=== PATIENT | male | born 1985 | race Caucasian/White ===

== ENCOUNTER 2016-10-06 12:05 | Emergency (ER) | payer OTHER ==
[2016-10-06 13:59] LABS: BILIRUBIN NEGATIVE (NEGATIVE); BLOOD NEGATIVE Ery/uL (NEGATIVE); CLARITY CLEAR (CLEAR); COLOR YELLOW (YELLOW); GLUCOSE (U) NORMAL (NORMAL); KETONE (U) NEGATIVE (NEGATIVE); LEUKOCYTES NEGATIVE Leu/uL (NEGATIVE); NITRITE NEGATIVE (NEGATIVE); PROTEIN NEGATIVE (NEGATIVE); SPECIFIC GRAVITY >=1.030 (1.001-1.030); UROBILINOGEN 0.2 mg/dL (0.2-1.0)
[2016-10-06 14:17] LABS: BASOPHIL 0.6 % (0-2); EOSINOPHIL 1.7 % (0-5); HCT 45.4 % (42.0-52.0); HGB 16.2 g/dl (13.2-18.0); MCH 31.8 pg (25.0-31.0); MCHC 35.7 g/dL (32.0-36.0); MONOCYTE 6.2 % (0-12); MPV 9.4 fL (6.0-9.5); NEUTROPHIL 70.5 % (41-80); PLT 390 K/uL (150-400); RDW 12.9 % (11.5-14.0); WBC 8.7 K/uL (4.0-10.5)
[2016-10-06 14:35] LABS: CREATININE 0.9 mg/dL (0.7-1.2); POTASSIUM 4.2 mmol/L (3.5-5.1)
== END 2016-10-06 15:55 | disposition home or self-care (01) ==
LOC: FER 12:05
PROVIDERS: Internal Medicine
DX: N45.1 Epididymitis (principal); F17.200 Nicotine dependence, unspecified, uncomplicated
CPT/HCPCS: 36415; 76870; 80048; 81003; 85025

== ENCOUNTER 2021-07-01 22:43 | Emergency (ER) | payer OTHER ==
[~2021-07-01 22:43] MED LIST: ASCORBIC ACID500 MG PO; BACLOFEN 20MG T20 MG PO; CERTAGEN1 EACH PO; NEURONTIN300 MG PO; XARELTO15 MG PO
== END 2021-07-01 22:53 | disposition left against medical advice (07) ==
LOC: FER 22:43
DX: Z53.21 Procedure and treatment not carried out due to patient leaving prior to being seen by health care provider (principal)

== ENCOUNTER 2021-08-01 10:44 | Emergency (ER) | payer OTHER ==
[2021-08-01] MEDS ORDERED: PERCOCET 10-321 EACH PO (14:18)
== END 2021-08-01 14:57 | disposition home or self-care (01) ==
LOC: FER 10:44
DX: S93.105A Unspecified dislocation of left toe(s), initial encounter (principal); F17.210 Nicotine dependence, cigarettes, uncomplicated; W22.8XXA Striking against or struck by other objects, initial encounter; Y92.009 Unspecified place in unspecified non-institutional (private) residence as the place of occurrence of the external cause
CPT/HCPCS: 73630; 73660; 96374; 96375; 96376; J1170; J2060